=== PATIENT | male | born 1970 | race Two or more races ===

== ENCOUNTER → 2023-03-18 | Outpatient (CLI) | payer OTHER, MEDICAID | END | disposition home or self-care (01) | LOC: LAB 11:01 | PROVIDERS: ATTEND Urology | DX: R35.1 Nocturia (principal) | CPT/HCPCS: 84153 ==

== ENCOUNTER 2023-04-12 20:44 | Emergency (ER) | payer OTHER, MEDICAID ==
[~2023-04-12] VITALS: Ht 167.6 cm; Wt 102.5 kg
[2023-04-12 21:27] LABS: Urine WBC None Seen /hpf (0 - 3)
[2023-04-12 21:40] LABS: Urine Bacteria NONE SEEN /hpf (None Seen); Urine Blood TRACE /uL (Negative); Urine Clarity Clear (Clear); Urine Color Yellow (Yellow); Urine Mucus FEW (None Seen); Urine Protein, UAD TRACE (Negative); Urine Specific Gravity 1.024 (1.001-1.035)
[2023-04-12] MEDS ORDERED: CYCL-837 PO (22:03)
[2023-04-12 23:08] VITALS: BP 130/84; PULSE 83; RESP 16; TEMP 97.8; O2SAT 96
[2023-04-12] MEDS: methylPREDNISolone SOD SUCC 125 MG/2 ML VL IM ONE (23:08)
[2023-04-12] MEDS: KETOROLAC TROMETH 30 MG/ML 1ML VIAL IM ONE (23:08)
== END 2023-04-12 23:08 | disposition home or self-care (01) ==
LOC: ER 20:44
DX: S39.012A Strain of muscle, fascia and tendon of lower back, initial encounter (principal); Z88.8 Allergy status to other drugs, medicaments and biological substances; X58.XXXA Exposure to other specified factors, initial encounter; Y93.89 Activity, other specified; Y92.89 Other specified places as the place of occurrence of the external cause; Y99.8 Other external cause status
CPT/HCPCS: 81001